=== PATIENT | female | born 1960 | race Caucasian/White ===

== ENCOUNTER → 2023-11-23 | Outpatient (CLI) | payer BC ==
[2023-11-23 16:05] LABS: HCT 49.1 % (34.0-46.0); MCH 30.5 pg (25.0-35.0); MCHC 32.5 g/dL (31.0-37.0); MCV 93.9 fL (80.0-100.0); Mean Platelet Volume 9.6; Platelet Count 232 k/uL (150-450); RBC 5.23 m/uL (3.80-5.40); RDW 12.9 % (11.5-15.5); WBC 13.7 k/uL (3.8-10.6)
[2023-11-23 16:09] LABS: ALT 26 U/L (4-34); AST 23 U/L (14-36); African American GFR (CKD) >90 (>60 ml/min/1.73 sqM); Albumin 4.1 g/dL (3.5-5.0); Albumin/Globulin Ratio 1.3; Alkaline Phosphatase 103 U/L (38-126); Anion Gap 10 mmol/L; Blood Urea Nitrogen 13 mg/dL (7-17); Calcium 9.6 mg/dL (8.4-10.2); Carbon Dioxide 25 mmol/L (22-30); Chloride 106 mmol/L (98-107); Globulin 3.1 g/dL; Glucose 127 mg/dL (74-99); Non-African American GFR(CKD) 85 (>60 ml/min/1.73 sqM); Sodium 141 mmol/L (137-145); Total Bilirubin 0.7 mg/dL (0.2-1.3); Total Protein 7.2 g/dL (6.3-8.2)
--- NOTE | 2023-11-23 17:18 | CT ---
EXAMINATION TYPE: CT abdomen pelvis w con DATE OF EXAM: 11/23/2023 COMPARISON: None HISTORY: Allyssa-rectal pain, blood in stool x 5 months- worsening abdominal pain CT DLP: 2003.7 mGycm CONTRAST: CT scan of the abdomen and pelvis is performed with Oral Contrast and with IV Contrast, patient injec vicki with 100 mL of Isovue 300. FINDINGS: LUNG BASES-: No visible nodule. No infiltrate. LIVER/GB: No calcified gallstones. No space occupying hepatic lesion. Biliary tree is of normal ca liber. PANCREAS: No inflammation. No distinct mass. SPLEEN: No splenic enlargement. No lesion seen. ADRENALS: No nodule. No thickening. KIDNEYS/BLADDER: No hydronephrosis. No nephrolithiasis. No distinct renal mass. Urinary bladder g rossly unremarkable. BOWEL: There is wall thickening with pericolonic stranding at the rectosigmoid junction likely reflec ting diverticulitis. Neoplasm is not excluded and clinical correlation is advised. There are also a f ew mildly prominent pericolonic lymph nodes seen. No evidence of abscess or free air. Small bowel is of normal caliber. Nonvisualization of the appendix. Moderate scattered fecal stasis. GENITAL ORGANS: No gross abnormality. LYMPH NODES: No greater than 1cm abdominal or pelvic lymph nodes are appreciated. AORTA: No significant abnormality. OSSEOUS STRUCTURES: No significant abnormality is seen. OTHER: No significant additional abnormality is seen. IMPRESSION: 1. There is wall thickening with pericolonic stranding at the rectosigmoid junction likely reflecting diverticulitis. Neoplasm is not excluded and clinical correlation is advised. There are also a few m ildly prominent pericolonic lymph nodes seen. No evidence of abscess or free air.
== END | disposition home or self-care (01) ==
LOC: RADCTMAIN 15:10
PROVIDERS: ATTEND Family Medicine
DX: K63.89 Other specified diseases of intestine (principal); R10.32 Left lower quadrant pain
CPT/HCPCS: 80053; 85027; 74177; 36415; Q9967

== ENCOUNTER 2024-01-11 20:25 | Emergency (ER) | payer BC ==
--- NOTE | 2024-01-11 20:40 | ED ---
General Adult HPI - General Source: RN notes reviewed <Shaji Lira - Last Filed: 01/11/24 20:40> - General Source: RN notes reviewed <Alayna Tavarez - Last Filed: 01/12/24 00:44> - General Stated complaint: nausea,cramping Time Seen by Provider: 01/11/24 20:39 - History of Present Illness Initial comments: Quick note 63-year-old female presents to the ED with complaints of abdominal pain. Reports that she was diagnosed with diverticulitis November 22. States she finished her antibiotics and had initial relief after finishing this however reports shortly after pain has returned and has been "dealing with it" since. Denies fever or chills. (Shaji Lira) 63-year-old female with history of diverticulitis presenting to the ER with abdominal pain. Reports that she was diagnosed with diverticulitis on November 22. She was given antibiotics which relieved symptoms temporarily, however the lower abdominal pain has slowly been worsening since then. She has a colonoscopy scheduled with Dr. Faith at the end of January. Admits to nausea but denies vomiting or fever. Admits pain with defecation. States the symptoms feel similar to last diverticulitis episode in November. (Alayna Tavarez) - Related Data Previous Rx's Medication Instructions Recorded Ciprofloxacin HCl [Cipro] 500 mg PO Q12HR 10 Days #20 tablet 01/12/24 Dicyclomine [Bentyl] 20 mg PO TID #30 tablet 01/12/24 metroNIDAZOLE [Flagyl] 500 mg PO TID 10 Days #30 tab 01/12/24 Allergies Allergy/AdvReac Type Severity Reaction Status Date / Time amoxicillin AdvReac Nausea Verified 01/11/24 20:42 clavulanic acid AdvReac Nausea Verified 01/11/24 20:42 [From Augmentin] Review of Systems ROS Other: All systems not noted in ROS Statement are negative. <Shaji Lira - Last Filed: 01/11/24 20:40> ROS Other: All systems not noted in ROS Statement are negative. <Alayna Tavarez - Last Filed: 01/12/24 00:44> ROS Statement: Those systems with pertinent positive or pertinent negative responses have been documented in the HPI. General Exam <Shaji Lira - Last Filed: 01/11/24 20:40> General appearance: alert, in no apparent distress Respiratory exam: Present: normal lung sounds bilaterally. Absent: respiratory distress, wheezes, rales, rhonchi, stridor Cardiovascular Exam: Present: regular rate, normal rhythm, normal heart sounds. Absent: systolic murmur, diastolic murmur, rubs, gallop, clicks GI/Abdominal exam: Present: soft, tenderness (Mild suprapubic tenderness to palpation), normal bowel sounds. Absent: distended, guarding, rebound, rigid Neurological exam: Present: alert, oriented X3, CN II-XII intact Psychiatric exam: Present: normal affect, normal mood Skin exam: Present: warm, dry, intact, normal color. Absent: rash <Alayna Tavarez - Last Filed: 01/12/24 00:44> - General Exam Comments Initial Comments: Visual Physical Exam Vital signs reviewed General: Well-appearing, nontoxic, no acute distress. Head: Normocephalic, atraumatic Eyes: PERRLA, EOMI ENT: Airway patent Chest: Nonlabored breathing Skin: No visual rash, normal skin tone Neuro: Alert and oriented 3 Musculoskeletal: No gross abnormalities (Shaji Lira) Course Vital Signs 01/11/24 01/12/24 20:34 00:00 Temperature 98.7 F Pulse Rate 92 89 Respiratory 18 18 Rate Blood Pressure 137/91 138/88 O2 Sat by Pulse 100 99 Oximetry Medical Decision Making <Shaji Lira - Last Filed: 01/11/24 20:40> - Lab Data Result diagrams: 01/11/24 23:40 01/11/24 21:32 <Alayna Tavarez - Last Filed: 01/12/24 00:44> - Medical Decision Making Quicknote portion performed. Signed Shaji Lira PA-C (Shaji Lira) Was pt. sent in by a medical professional or institution ([facility], [employer] WORK[employer], urgent care, hospital, or snf...) When possible be specific @ -No Did you speak to anyone other than the patient for history (EMS, parent, family, police, friend...)? What history was obtained from this source @ -No Did you review nursing and triage notes (agree or disagree)? Why? @ -I reviewed and agree with nursing and triage notes Were old charts reviewed (outside hosp., previous admission, EMS record, old EKG, old radiological studies, urgent care reports/EKG's, snf records)? Report findings @ -CT from 11-23-2023 reviewed which revealed wall thickening with pericolonic stranding at rectosigmoid junction likely reflecting diverticulitis. Differential Diagnosis (chest pain, altered mental status, abdominal pain women, abdominal pain men, vaginal bleeding, weakness, fever, dyspnea, syncope, h eadache, dizziness, GI bleed, back pain, seizure, CVA, palpatations, mental health, musculoskeletal)? @ -Differential Abdominal Pain Women: Appendicitis, Cholecystitis, diverticulosis, ischemic bowel, pancreatitis, hepatitis, UTI, gastroenteritis, AAA, incarcerated hernia, bowel obstruction, constipation, inflammatory bowel, hepatitis, peptic ulcer disease, splenic infarction, perforated viscus, vulvitis, ovarian torsion, PID, kidney stone, placenta abruption, this is not meant to be an all-inclusive list EKG interpreted by me (3pts min.). @ -None X-rays interpreted by me (1pt min.). @ -None done CT interpreted by me (1pt min.). @ -CT today revealed bowel loops nondilated, diverticulosis of colon, greatest involving the sigmoid colon which demonstrates mild wall thickening and slight surrounding inflammation consistent with acute diverticulitis U/S interpreted by me (1pt. min.). @ -None done What testing was considered but not performed or refused? (CT, X-rays, U/S, labs)? Why? @ -None What meds were considered but not given or refused? Why? @ -None Did you discuss the management of the patient with other professionals (professionals i.e. , PA, WIND UP WORKER, lab, RT, psych nurse, social work msw, resizer operator, teacher, nuclear officer, residential case manager)? Give summary @ -No Was smoking cessation discussed for >3mins.? @ -No Was critical care preformed (if so, how long)? @ -No Were there social determinants of health that impacted care today? How? (Homelessness, low income, unemployed, alcoholism, drug addiction, transportation, low edu. Level, literacy, decrease access to med. care, fdc, rehab)? @ -No Was there de-escalation of care discussed even if they declined (Discuss DNR or withdrawal of care, Hospice)? DNR status @ -No What co-morbidities impacted this encounter? (DM, HTN, Smoking, COPD, CAD, Cancer, CVA, ARF, Chemo, Hep., AIDS, mental health diagnosis, sleep apnea, morbid obesity)? @ -None Was patient admitted / discharged? Hospital course, mention meds given and route, prescriptions, significant lab abnormalities, going to OR and other pertinent info. @ -Patient was discharged. Patient was seen and evaluated for abdominal pain x 1.5 months that is worsening in severity. Vital signs are within normal limits and physical examination is remarkable for bilateral lower abdominal tenderness. CT today revealed acute diverticulitis. Lab work and urine is unremarkable. P atient is tolerating orals well. Patient was given IV fluids and Toradol for pain which mildly relieved symptoms. Discussed diagnosis of acute diverticulitis with patient. Discussed since she is afebrile and tolerating orals, she can be treated outpatient. Given first dose of Flagyl and ciproflo xacin before discharge. Supportive care discussed. Advised bowel rest with clear liquid diet. Strict return/alarm symptoms discussed with patient in detail and patient shows understanding and agrees with plan. Advised close follow-up with GI doctor within 1 to 3 days. Patient discharged in stable condition. Case discussed with Dr. Pompa. Undiagnosed new problem with uncertain prognosis? @ -No Drug Therapy requiring intensive monitoring for toxicity (Heparin, Nitro, Insulin, Cardizem)? @ -No Were any procedures done? @ -No Diagnosis/symptom? @ -Acute uncomplicated diverticulitis Acute, or Chronic, or Acute on Chronic? @ -Acute Uncomplicated (without systemic symptoms) or Complicated (systemic symptoms)? @ -Uncomplicated Side effects of treatment? @ -No Exacerbation, Progression, or Severe Exacerbation? @ -No Poses a threat to life or bodily function? How? (Chest pain, [place], [place], pneumonia, PE, COPD, DKA, ARF, appy, cholecystitis, CVA, Diverticulitis, Homicidal, Suicidal, threat to staff... and all critical care pts) @ -No (Alayna Tavarez) - Lab Data Lab Results 01/11/24 01/11/24 01/11/24 Range/Units 21:32 21:58 23:40 WBC 10.3 (3.8-10.6) k/uL RBC 4.85 (3.80-5.40) m/uL Hgb 14.5 (11.4-16.0) gm/dL Hct 45.1 (34.0-46.0) % MCV 93.0 (80.0-100.0) fL MCH 30.0 (25.0-35.0) pg MCHC 32.2 (31.0-37.0) g/dL RDW 13.1 (11.5-15.5) % Plt Count 204 (150-450) k/uL MPV 10.0 Neutrophils % 62 % Lymphocytes % 27 % Monocytes % 5 % Eosinophils % 3 % Basophils % 1 % Neutrophils # 6.4 (1.3-7.7) k/uL Lymphocytes # 2.8 (1.0-4.8) k/uL Monocytes # 0.5 (0-1.0) k/uL Eosinophils # 0.3 (0-0.7) k/uL Basophils # 0.1 (0-0.2) k/uL Sodium 138 (137-145) mmol/L Potassium 5.0 (3.5-5.1) mmol/L Chloride 108 H (98-107) mmol/L Carbon Dioxide 21 L (22-30) mmol/L Anion Gap 9 mmol/L BUN 13 (7-17) mg/dL Creatinine 0.75 (0.52-1.04) mg/dL Est GFR (CKD-EPI)AfAm >90 (>60 ml/min/1.73 sqM) Est GFR (CKD-EPI)NonAf 86 (>60 ml/min/1.73 sqM) Glucose 129 H (74-99) mg/dL Calcium 9.3 (8.4-10.2) mg/dL Total Bilirubin 1.1 (0.2-1.3) mg/dL AST 38 H (14-36) U/L ALT 29 (4-34) U/L Alkaline Phosphatase 110 (38-126) U/L Total Protein 7.7 (6.3-8.2) g/dL Albumin 4.3 (3.5-5.0) g/dL Amylase 55 (30-110) U/L Lipase 58 (23-300) U/L Urine Color Yellow Urine Appearance Cloudy H (Clear) Urine pH 5.5 (5.0-8.0) Ur Specific Atkinson 1.030 (1.001-1.035) Urine Protein 1+ H (Negative) Urine Glucose (UA) Negative (Negative) Urine Ketones Negative (Negative) Urine Blood Negative (Negative) Urine Nitrite Negative (Negative) Urine Bilirubin Negative (Negative) Urine Urobilinogen 3.0 (<2.0) mg/dL Ur Leukocyte Esterase Small H (Negative) Urine RBC 1 (0-5) /hpf Urine WBC 11 H (0-5) /hpf Ur Squamous Epith Cells 5 H (0-4) /hpf Amorphous Sediment Rare H (None) /hpf Urine Bacteria Many H (None) /hpf Hyaline Casts 108 H (0-2) /lpf Urine Mucus Many H (None) /hpf Disposition <Shaji Lira - Last Filed: 01/11/24 20:40> Is patient prescribed a controlled substance at d/c from ED?: No Time of Disposition: 00:26 <Alayna Tavarez - Last Filed: 01/12/24 00:44> Clinical Impression: Acute diverticulitis Disposition: HOME SELF-CARE Condition: Stable Instructions (If sedation given, give patient instructions): Diverticulitis (ED) Additional Instructions: Follow-up with GI in 1 to 3 days. Please return to the Emergency Department if symptoms worsen or any other concerns. Prescriptions: Dicyclomine [Bentyl] 20 mg PO TID #30 tablet Ciprofloxacin HCl [Cipro] 500 mg PO Q12HR 10 Days #20 tablet metroNIDAZOLE [Flagyl] 500 mg PO TID 10 Days #30 tab Referrals: None,Stated [Primary Care Provider] - 1-2 days Melony Faith MD [STAFF PHYSICIAN] - 1-2 days
[2024-01-11 20:56] VITALS: RESP 18; TEMP 98.7
[2024-01-11] MEDS: KETOROLAC 15 MG/ML 1 ML VIAL IVP STA (21:40)
[2024-01-11] MEDS: ONDANSETRON 4 MG/2 ML VIAL IVP STA (21:41)
[2024-01-11] MEDS: SODIUM CHLORIDE 0.9% 500 ML 500 ML IV STA (21:43)
[2024-01-11 22:21] LABS: ALT 29 U/L (4-34); African American GFR (CKD) >90 (>60 ml/min/1.73 sqM); Amylase 55 U/L (30-110); Anion Gap 9 mmol/L; Blood Urea Nitrogen 13 mg/dL (7-17); Calcium 9.3 mg/dL (8.4-10.2); Carbon Dioxide 21 mmol/L (22-30); Chloride 108 mmol/L (98-107); Glucose 129 mg/dL (74-99); Lipase 58 U/L (23-300); Non-African American GFR(CKD) 86 (>60 ml/min/1.73 sqM); Sodium 138 mmol/L (137-145)
[2024-01-11 22:22] LABS: Amorphous Sediment,Urine Rare /hpf; Appearance,Urine Cloudy (Clear); Bacteria,Urine Many /hpf; Bilirubin,Urine Negative (Negative); Blood,Urine Negative (Negative); Color,Urine Yellow; Glucose,Urine (UA) Negative (Negative); Hyaline Casts,Urine 108 /lpf (0-2); Ketones,Urine Negative (Negative); Leukocyte Esterase,Urine Small (Negative); Mucus,Urine Many /hpf; Nitrite,Urine Negative (Negative); PH, Urine 5.5 (5.0-8.0); Protein,Urine 1+ (Negative); RBC,Urine 1 /hpf (0-5); Squamous Epithelial Cell,Urine 5 /hpf (0-4); WBC,Urine 11 /hpf (0-5)
[2024-01-11 22:27] LABS: AST 38 U/L (14-36)
[2024-01-11 22:28] LABS: Albumin 4.3 g/dL (3.5-5.0); Alkaline Phosphatase 110 U/L (38-126); Total Bilirubin 1.1 mg/dL (0.2-1.3); Total Protein 7.7 g/dL (6.3-8.2)
--- NOTE | 2024-01-11 23:09 | CT ---
EXAM: CT Abdomen and Pelvis With Intravenous Contrast CLINICAL HISTORY: CT Reason: Hx diverticulitis 11/22 return of same pain TECHNIQUE: Axial computed tomography images of the abdomen and pelvis with intravenous contrast. CTDI is 32.4 mGy and DLP is 1617.3 mGy-cm. This CT exam was performed using one or more of the following dose reduction techniques: automated exposure control, adjustment of the mA and/or kV according to patient size, and/or use of iterative reconstruction technique. COMPARISON: November 23, 2023 FINDINGS: Lung bases: Unremarkable. No mass. No consolidation. ABDOMEN: Liver: Unremarkable. No mass. Gallbladder and bile ducts: Unremarkable. No calcified stones. No ductal dilation. Pancreas: Unremarkable. No mass. No ductal dilation. Spleen: Unremarkable. No splenomegaly. Adrenals: Unremarkable. No mass. Kidneys and ureters: Unremarkable. No solid mass. No hydronephrosis. Stomach and bowel: Bowel loops are nondilated. There is diverticulosis of the colon, greatest involving the sigmoid colon which demonstrates mild wall thickening and slight surrounding inflammation consistent with acute diverticulitis, similar to previous. No bowel perforation or abscess is identified. PELVIS: Appendix: The appendix is normal. Bladder: The urinary bladder is completely decompressed and unremarkable. Reproductive: Unremarkable as visualized. ABDOMEN and PELVIS: Intraperitoneal space: Unremarkable. No free air. No significant fluid collection. 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 This appears chronic. No spinal stenosis. There is moderate right and severe left neural foraminal narrowing. No acute fracture. No dislocation. Soft tissues: Unremarkable. Vasculature: The abdominal aorta is mildly calcified but nondilated. Lymph nodes: Unremarkable. No enlarged lymph nodes. IMPRESSION: Bowel loops are nondilated. There is diverticulosis of the colon, greatest involving the sigmoid colon which demonstrates mild wall thickening and slight surrounding inflammation consistent with acute diverticulitis, similar to previous. No bowel perforation or abscess is identified.
[2024-01-11 23:55] LABS: Basophils # (A) 0.1 k/uL (0-0.2); Basophils % (A) 1 %; Eosinophils # (A) 0.3 k/uL (0-0.7); Eosinophils % (A) 3 %; HCT 45.1 % (34.0-46.0); HGB 14.5 gm/dL (11.4-16.0); Lymphocytes # (A) 2.8 k/uL (1.0-4.8); Lymphocytes % (A) 27 %; MCHC 32.2 g/dL (31.0-37.0); Monocytes # (A) 0.5 k/uL (0-1.0); Monocytes % (A) 5 %; Neutrophils # (A) 6.4 k/uL (1.3-7.7); Neutrophils % (A) 62 %; Platelet Count 204 k/uL (150-450); RBC 4.85 m/uL (3.80-5.40); RDW 13.1 % (11.5-15.5); WBC 10.3 k/uL (3.8-10.6)
[2024-01-12 00:10] VITALS: BP 138/88; PULSE 89
[2024-01-12] MEDS: CIPROFLOXACIN HCL 500 MG TAB PO STA (00:33)
[2024-01-12] MEDS: metroNIDAZOLE 500 MG TAB PO STA (00:33)
== END 2024-01-12 00:44 | disposition home or self-care (01) ==
LOC: EC 20:25
DX: K57.32 Diverticulitis of large intestine without perforation or abscess without bleeding (principal); Z88.0 Allergy status to penicillin; Z88.8 Allergy status to other drugs, medicaments and biological substances
CPT/HCPCS: 36415; 80053; 82150; 83690; 85025; 81001; 74177; 99285; 96374; 96375; 96361 ×2; J2405; J1885; Q9967; 87086

== ENCOUNTER 2024-02-18 12:02 | Day surgery (SDC) | payer BC ==
[2024-02-16 15:19] VITALS: BMI 34.0
[2024-02-18 12:34] VITALS: TEMP 97.5
[2024-02-18] MEDS: IV FLUID CONTINUATION 1,000 ML IV ONE (12:34)
[2024-02-18 12:37] LABS: Glucose,Whole Blood 130 mg/dL (70-110)
[2024-02-18] MEDS: LACTATED RINGERS 1,000 ML IV SCH (12:38)
[2024-02-18] MEDS: ONDANSETRON 4 MG/2 ML VIAL IVP STA (12:39)
[2024-02-18] MEDS ORDERED: PROPOFOL 10 MG/ML 20 ML VIAL IV ONE (13:30)
--- NOTE | 2024-02-18 13:52 | P.PCN ---
Date of Procedure: 02/18/24 Procedure(s) Performed: BRIEF HISTORY: Patient is a 64-year-old pleasant white female scheduled for an elective colonoscopy as a part of intermittent rectal bleeding for the last 3 months duration. Also has noted some change in bowel habits. She is complaining of some vaginal bleeding for the last 2 months. PROCEDURE PERFORMED: Colonoscopy up to sigmoid colon with biopsy and tattooing with Amber ink. PREOPERATIVE DIAGNOSIS: Intermittent rectal bleeding. IV sedation per Anesthesia. PROCEDURE: After informed consent was obtained, the patient, was brought into the endoscopy unit. IV sedation was administered by Anesthesia under continuous monitoring. Digital rectal examination was normal. Initially the Olympus CF-160 flexible video colonoscope was then inserted in the rectum, gradually advanced into the rectosigmoid colon and at 20 cm from the anal verge there was a near occluding ulcerated mass identified and the scope would not be advanced through the mass. The scope was removed and a pediatric colonoscopy then introduced into the rectum and gently advanced to the rectosigmoid colon and despite multiple attempts I was not able to advance the scope beyond occluding mass. At this time multiple biopsies were done from the mass followed by tattooing with Amber ink. Mucosa of the rectum appeared normal. Retroflexion was performed in the rectum and no lesions were seen. The patient tolerated the procedure well. IMPRESSION: Near occluding circumferential ulcerated mass involving the rectosigmoid colon at 20 cm from the anal verge s/p multiple biopsies followed by tattooing with Amber ink Scope could not be advanced beyond the mass RECOMMENDATIONS: Findings of this examination were discussed with the patient as well as her family. She was advised to follow-up with the biopsy results. In the meantime she will be scheduled for CT of the abdomen pelvis and she will be seen in the office early next week..
[2024-02-18 14:19] VITALS: RESP 18
[2024-02-18 14:34] VITALS: BP 109/59; PULSE 78
== END 2024-02-18 14:27 | disposition home or self-care (01) ==
LOC: ORWHC2ENDO 12:02
PROVIDERS: ATTEND Internal Medicine Gastroenterology
DX: C19 Malignant neoplasm of rectosigmoid junction (principal); G47.33 Obstructive sleep apnea (adult) (pediatric); F32.A Depression, unspecified; I49.5 Sick sinus syndrome; F17.200 Nicotine dependence, unspecified, uncomplicated; Z88.1 Allergy status to other antibiotic agents; Z95.0 Presence of cardiac pacemaker; Z79.899 Other long term (current) drug therapy
CPT/HCPCS: 88305; 88342; 88341; 45381; J2405; J2704